=== PATIENT | male | born 1990 | race Two or more races ===

== ENCOUNTER 2021-07-30 10:53 | Emergency (ER) | payer MEDICAID ==
[~2021-07-30] VITALS: Ht 182.9 cm; Wt 72.7 kg
--- NOTE | 2021-07-30 12:11 | NUR ---
PT MOVED TO ROOM FROM LOBBY, DRAIN VISUALLY. INSPECTED, APPROX 15 ML OF YELLOW FLUID IN CATCH BAG. NO REDDNESS SWELLING PRESENT. PT STATES NO PAIN ASSOCIATED WITH DRAIN SITE.
[2021-07-30 14:17] VITALS: BP 140/85
== END 2021-07-30 15:45 | disposition home or self-care (01) ==
LOC: ER 10:54
DX: K91.872 Postprocedural seroma of a digestive system organ or structure following a digestive system procedure (principal); F17.200 Nicotine dependence, unspecified, uncomplicated; F12.90 Cannabis use, unspecified, uncomplicated; Z72.89 Other problems related to lifestyle; Z90.49 Acquired absence of other specified parts of digestive tract
CPT/HCPCS: 99281

== ENCOUNTER 2021-08-07 13:12 | Emergency (ER) | payer MEDICAID ==
[~2021-08-07] VITALS: Ht 182.9 cm; Wt 72.7 kg
[2021-08-07 14:57] VITALS: BP 110/72
== END 2021-08-07 15:05 | disposition home or self-care (01) ==
LOC: ER 13:13
DX: K91.872 Postprocedural seroma of a digestive system organ or structure following a digestive system procedure (principal); F12.90 Cannabis use, unspecified, uncomplicated; Z90.49 Acquired absence of other specified parts of digestive tract; Z72.89 Other problems related to lifestyle
CPT/HCPCS: 99281

== ENCOUNTER 2021-08-23 14:52 | Emergency (ER) | payer MEDICAID ==
[~2021-08-23] VITALS: Ht 182.9 cm; Wt 72.7 kg
[2021-08-23 14:59] VITALS: BP 110/69
--- NOTE | 2021-08-23 15:32 | NUR ---
urine sent to lab
[2021-08-23 15:43] LABS: CLARITY,URINE CLEAR (Clear); COLOR,URINE YELLOW (Yellow); GLUCOSE, URINE NEGATIVE (Neg); KETONES,URINE NEGATIVE (Neg); LEUKOCYTE ESTERASE ,URINE NEGATIVE (Neg); NITRITES, URINE NEGATIVE (Neg); OCCULT BLOOD,URINE NEGATIVE (Neg); PROTEIN,URINE NEGATIVE (Neg); UROBILINOGEN,URINE 0.2 E.U/dL (0.2-1.0)
[2021-08-23 15:47] LABS: UA COLLECTION TYPE VOIDED
== END 2021-08-23 17:25 | disposition home or self-care (01) ==
LOC: ER 14:53
DX: Z02.89 Encounter for other administrative examinations (principal); K35.32 Acute appendicitis with perforation, localized peritonitis, and gangrene, without abscess; R10.32 Left lower quadrant pain; F12.90 Cannabis use, unspecified, uncomplicated; Z90.89 Acquired absence of other organs; Z72.89 Other problems related to lifestyle
CPT/HCPCS: 81003; 99283

== ENCOUNTER 2021-09-01 06:19 | Emergency (ER) | payer SELFPAY ==
[~2021-09-01] VITALS: Ht 182.9 cm; Wt 72.7 kg
[2021-09-01 06:26] VITALS: BP 121/84
== END 2021-09-01 08:44 | disposition left against medical advice (07) ==
LOC: ER 06:19
DX: R10.30 Lower abdominal pain, unspecified (principal); Z53.21 Procedure and treatment not carried out due to patient leaving prior to being seen by health care provider

== ENCOUNTER 2021-09-15 08:18 | Emergency (ER) | payer MEDICAID ==
[~2021-09-15] VITALS: Ht 182.9 cm; Wt 67.1 kg
[2021-09-15] MEDS ORDERED: ketorolac trometh. 30mg/ml inj. IM ONE (09:20)
[2021-09-15] MEDS ORDERED: IBUP-1986 PO (09:24)
[2021-09-15] MEDS ORDERED: cefoxitin sod inj 2,000 MG in normal saline 100ml IV soln 100 ML IV STA (09:34)
[2021-09-15 10:38] VITALS: BP 114/81
== END 2021-09-15 10:30 | disposition home or self-care (01) ==
LOC: ER 08:19
DX: S42.101A Fracture of unspecified part of scapula, right shoulder, initial encounter for closed fracture (principal); S40.211A Abrasion of right shoulder, initial encounter; M25.511 Pain in right shoulder; F12.90 Cannabis use, unspecified, uncomplicated; Z72.89 Other problems related to lifestyle; Z90.49 Acquired absence of other specified parts of digestive tract; Z79.899 Other long term (current) drug therapy; V86.96XA Unspecified occupant of dirt bike or motor/cross bike injured in nontraffic accident, initial encounter; Y93.89 Activity, other specified; Y92.89 Other specified places as the place of occurrence of the external cause; Y99.8 Other external cause status
CPT/HCPCS: 29105; 73030; 73200; 96372; 99284; J1885